=== PATIENT | male | born 1960 | race Hispanic/Latino ===

== ENCOUNTER 2018-12-28 09:41 | Observation (INO) | payer MEDICARE ==
[~2018-12-28] VITALS: Ht 180.3 cm; Wt 85.7 kg
--- OUTSIDE RECORDS SUMMARY | 2018-12-28 09:44 | XMS REPORT | Clinical Summary ---
Author Author [facility] Organization [facility] Address Unknown Phone Unavailable Care Team Providers Care Sports Physiologist Name Role Phone PCP Unavailable Allergies Comments Active Allergy Reactions Severity Noted Date Ruben Inhibitors Cough Medium 12/30/2008 Medications End Date Status Medication Sig Dispensed Refills Start Date Active blood glucose Use as 1 Kit 0 meterIndications: Type 2 directed.. 5 diabetes mellitus without complication Active blood glucose test 2 times 100 Each 11 stripsIndications: Type 2 weekly. 5 diabetes mellitus without complication Active fluticasone (FLONASE) 50 Use 1 [place] 16 g 0 mcg/actuation nasal in each 6 sprayIndications: Viral nostril URI with cough daily. Active ergocalciferol (VITAMIN Take 1 12 capsule 0 D2) 50,000 unit capsule by 7 capsuleIndications: mouth weekly Vitamin D deficiency For 3 months and then buy vitamin D3: 2000 units and take 1 tablet/day. Active levothyroxine (SYNTHROID) Take 1 tablet 90 tablet 3 50 mcg tabletIndications: by mouth 7 Unspecified daily For hypothyroidism thyroid (increased). Active amLODIPine (NORVASC) 10 Take 1 tablet 90 tablet 3 mg tabletIndications: by mouth 7 Essential hypertension daily For hypertension (increased dose). Active aspirin (ASPIRIN) 81 mg Chew and 0 chewable tablet swallow 81 mg by mouth daily. Active ciclesonide (ZETONNA) 37 Use 1 [place] 6.1 g 6 mcg/actuation nasal HFA in each 7 inhalerIndications: Nasal nostril congestion daily. Active LOSARTAN POTASSIUM Take 25 mg by 0 (LOSARTAN OR) mouth daily. Active montelukast (SINGULAIR) Take 10 mg by 0 10 mg tablet mouth at bedtime nightly. Active Problems Problem Noted Date Unspecified hypothyroidism 08/29/2016 Triple vessel disease of the heart 07/11/2016 Admission for antineoplastic chemotherapy 05/11/2015 Follow up 03/18/2015 Squamous cell carcinoma of base of tongue 02/03/2015 Overview: Tumor Board Discussion (01/28/15): Diagnosis: [id number] likely squamous cell carcinoma of right base of tongue Tx: None HPI: 54 yo M with right ear pain and sore throat for about a year. He has had progressive odynophagia, but no dysphagia. He also notes a firm mass on the right side of his base of tongue. He has had associated numbness of his right tongue. He has had weight loss of 10-12 pounds secondary to odynophagia. Denies fevers, chills, nasal congestion, rhinorrhea. He is a former smoker; he quit 2 months ago, previously smoked a pack a week for 5 years. He takes 2-3 drinks every other day, no recreational drug use. He has no family history of cancer. ROS: No otalgia, otorrhea, fevers, chills. PMH: HTN, HLD PSH: None All: Lisinopril Medications: Ergocalciferol, losartan, Lipitor SH: 2.5 PY history smoking, not currently; 2-3 drinks every other day FHx: Non-contributory Labs: Cr 1.0 Physical Exam: General: Well-developed, well-groomed, and well-nourished; no distress. Strong voice. Oral cavity/Oropharynx: Firm lesion on right base of tongue, 3.5x4.5 cm. Oral tongue, floor of mouth, and tonsillar fossae are soft to palpation. Tongue is fully mobile. Soft palate elevates symmetrically. Dentition is poor. Hypopharynx/Larynx: No lesions or masses involving the supraglottis, glottis, subglottis, posterior hypopharyngeal wall, or pyriform sinuses. True vocal cords are fully mobile. No pooling of secretions in the pyriform sinuses or post-cricoid region. Larynx elevates normally during phonation. Neck: Soft, mobile, nontender right level IIa node, 3x2cm. The thyroid is not enlarged and has no palpable nodules. Full range of motion. Normal laryngeal crepitus. Imaging: CT Neck (01/01/15): 1. The findings are worrisome for right tongue base squamous cell carcinoma. 2. Necrotic metastatic level 2A cervical lymphadenopathy on the right, suspicious level 2A on the left nonnecrotic lymph node. CT Chest (01/21/15): 1. No evidence of metastatic disease to the thorax. 2. Hepatic steatosis without findings to suggest cirrhosis. 3. Benign-appearing lesion in the left scapula. Addendum from [facility]: Concerning 8mm left level III node Pathology: Lymph node, right neck, superficial fine needle aspiration (01/13/15): Negative for malignancy Plan: ENT will perform DL and biopsy as path is needed to confirm diagnosis. Likely treatment will be primary chemoradiation. OMFS, Rad Onc, and Med Onc referrals placed. Neck mass 09/27/2014 Screen for colon cancer 09/27/2014 Screening for prostate cancer 09/27/2014 Other and unspecified alcohol dependence, unspecified drinking behavior 09/25/2014 Smoking 09/25/2014 Prediabetes 08/19/2012 HTN (hypertension) 07/18/2012 Elevated fasting glucose 12/30/2008 Hypertriglyceridemia 04/22/2008 BROWN (dyspnea on exertion) 03/11/2008 RUQ abdominal pain 03/11/2008 Squamous cell carcinoma Overview: base of tongue Mixed hyperlipidemia Overview: Hyperlipidemia Hypertension Ex-smoker Emphysema of lung Coronary atherosclerosis Constipation Hemorrhoid Vitamin D deficiency Renal insufficiency Elevated hemoglobin A1c Iron deficiency Elevated ferritin TSH elevation Encounters Care Team Description Date Type Specialty Hanna Murphy MD History of oropharyngeal cancer (Primary Dx); History of head and neck radiation 12/13/2018 Office Visit Ent-Otolaryngology 12/13/2018 Travel No Show 09/30/2018 Hospital Radiation Oncology Encounter Squamous cell carcinoma of base of tongue 09/11/2018 Ancillary Radiology Procedure 09/09/2018 Travel Jerzy Manuel MD Cancer of oropharynx (Primary Dx) 08/01/2018 Orders Only Radiation Oncology 07/05/2018 Travel Squamous cell carcinoma of base of tongue (Primary Dx) 02/12/2018 Hospital Radiation Oncology Encounter 02/12/2018 Hospital Radiation Oncology Encounter after 12/27/2017 Immunizations Name Administration Dates Next Due Influenza Vaccine 07/11/2016, 09/10/2015 (Deferred: Contraindication - Patient having throat swelling), 07/15/2015 (Deferred: Unavailable-Patient to return for vaccine later), 07/08/2014 Methylpredinsone Inj 09/10/2015 Pneumoccoccal 07/08/2014 Td Tetanus, diphtheria 12/31/2003 Toxoids Vaccine Family History Medical History Relation Name Comments Hypertension Brother Diabetes Father Heart Father CABG 4 vessel, age 62 Hypertension Mother Relation Name Status Comments Brother Alive x2 Brother Father Alive Maternal Grandfather Maternal Grandmother Mother Alive Paternal Grandfather Paternal Grandmother Social History Date Tobacco Use Types Packs/Day Years Used Former Smoker Cigarettes 2 Smokeless Tobacco: Former User Tobacco Cessation: Counseling Given: No Comments: quit since 3 to 4 months: stopped Jul 2014 Drinks/Week oz/Week Comments Alcohol Use 3 Cans of beer 1.5 every other day; stopped 2014 Yes Sex Assigned at Date Recorded Not on file Industry Job Start Date Occupation Not on file Not on file Not on file Travel End Travel History Travel Start No recent travel history available. Last Filed Vital Signs Reading Time Taken Comments Vital Sign 137/77 02/12/2018 2:16 PM CDT Blood Pressure 69 02/12/2018 2:16 PM CDT Pulse 36.8 C (98.3 F) 02/12/2018 2:16 PM CDT Temperature 20 02/12/2018 2:16 PM CDT Respiratory Rate 100% 02/12/2018 2:16 PM CDT Oxygen Saturation - - Inhaled Oxygen Concentration 83 kg (182 lb 14.4 oz) 02/12/2018 2:16 PM CDT Weight - - Height 26.24 08/29/2016 2:47 PM HOTEL ASSISTANT MANAGER Body Mass Index Plan of Treatment Health Maintenance Due Date Last Done Comments Colorectal Cancer Scrn 01/17/2017 01/18/2016 Annual (FIT/FOBT) Age 50 to 75 CORONARY ARTERY DISEASE 07/11/2017 07/11/2016, 01/12/2016, 08/02/2015, AGE 18 AND UP Additional history exists Procedures Comments Procedure Name Priority Date/Time Associated Diagnosis CT SOFT TISSUE NECK W Routine 09/11/2018 Squamous cell carcinoma CONTRAST 2:27 PM HOTEL ASSISTANT MANAGER of base of tongue UREA NITROGEN/CREATININE Routine 09/09/2018 Cancer of oropharynx 12:26 PM HOTEL ASSISTANT MANAGER UREA NITROGEN/CREATININE Routine 07/05/2018 Squamous cell carcinoma 9:29 AM HOTEL ASSISTANT MANAGER of base of tongue THYROID STIMULATING Routine 02/12/2018 Squamous cell carcinoma HORMONE (TSH) 3:31 PM CDT of base of tongue after 12/27/2017 Results * CT SOFT TISSUE NECK W CONTRAST (09/11/2018 2:27 PM HOTEL ASSISTANT MANAGER) Specimen Impressions Performed At IMPRESSION: SMS 1. No evidence of right base of tongue cancer. 2. No enlarged cervical lymphadenopathy. 3. Stable post treatment changes. Dictated By: Milan Garcia MD, 09/11/2018 4:40 PM I have reviewed the study and agree with the findings in this report. Signed By: Liz Don MD, 09/11/2018 5:04 PM Narrative Performed At Exam: Neck CT with contrast SMS History: H&N cancer s/p chemoradiation please assess. 56y.o.?M with a h/o [id number] SCC of the R BOT s/p chemo XRT, which he completed 06/25/15. He only received 2 rounds of cisplatin due to CHELLE. He has done well overall. Comparison studies: Multiple soft tissue neck CTs from 01/01/2015 through 05/16/2017. Technique: Axial scans were obtained through the neck with IV contrast. Coronal and sagittal reconstructions obtained from the axial data. IV Contrast: 100 cc of Omnipaque. Radiation Dose: Total DLP: 332 mGy*cm Estimated Effective Dose: DLP x 0.0059 mSv FINDINGS: Masses: Postradiation changes in the right tongue base without evidence of local recurrent tumor. Right tongue base atrophy and mild stranding of the submandibular region soft tissues from prior radiation. Lymph nodes: No radiographically significant adenopathy. Arteries: Patent carotid and vertebral arteries. Jugular veins: Patent.Co-dominant. Glands: Submandibular:Homogeneous, normal in size. Parotid: Homogeneous, normal in size. Thyroid:Homogeneous, normal in size. Orbits: No abnormalities.. Paranasal sinuses: Clear. Skull base and facial bones: No abnormalities. Temporal bones: No abnormalities. Cervical spine: C6-C7: Disc osteophyte complex formation asymmetric to the right, bilateral uncovertebral arthrosis. Severe right and mild left foraminal stenosis. Procedure Note Interface, Rad/Mammog In - 09/11/2018 5:09 PM HOTEL ASSISTANT MANAGER Exam: Neck CT with contrast History: H&N cancer s/p chemoradiation please assess. 56y.o.?M with a h/o [id number] SCC of the R BOT s/p chemo XRT, which he completed 06/25/15. He only received 2 rounds of cisplatin due to CHELLE. He has done well overall. Comparison studies: Multiple soft tissue neck CTs from 01/01/2015 through 05/16/2017. Technique: Axial scans were obtained through the neck with IV contrast. Coronal and sagittal reconstructions obtained from the axial data. IV Contrast: 100 cc of Omnipaque. Radiation Dose: Total DLP: 332 mGy*cm Estimated Effective Dose: DLP x 0.0059 mSv FINDINGS: Masses: Postradiation changes in the right tongue base without evidence of local recurrent tumor. Right tongue base atrophy and mild stranding of the submandibular region soft tissues from prior radiation. Lymph nodes: No radiographically significant adenopathy. Arteries: Patent carotid and vertebral arteries. Jugular veins: Patent.Co-dominant. Glands: Submandibular:Homogeneous, normal in size. Parotid: Homogeneous, normal in size. Thyroid:Homogeneous, normal in size. Orbits: No abnormalities.. Paranasal sinuses: Clear. Skull base and facial bones: No abnormalities. Temporal bones: No abnormalities. Cervical spine: C6-C7: Disc osteophyte complex formation asymmetric to the right, bilateral uncovertebral arthrosis. Severe right and mild left foraminal stenosis. IMPRESSION IMPRESSION: 1. No evidence of right base of tongue cancer. 2. No enlarged cervical lymphadenopathy. 3. Stable post treatment changes. Dictated By: Milan Garcia MD, 09/11/2018 4:40 PM I have reviewed the study and agree with the findings in this report. Signed By: Liz Don MD, 09/11/2018 5:04 PM Performing Organization Address City/State/Zipcode Phone Number SMS * UREA NITROGEN/CREA (09/09/2018 12:26 PM HOTEL ASSISTANT MANAGER) Only the most recent of 2 results within the time period is included. BUN 8 7 - 25 mg/dL [facility] Creatinine 1.00 0.7 - 1.3 mg/dL [facility] 1 GFR, Estimated >60 mL/min/1.73 m2 [facility] 1 eGFR If Africn >60 mL/min/1.73 m2 [facility] Am 1 Specimen Other (Specify in Comments) Performing Organization Address City/State/Zipcode Phone Number [facility] * TSH (02/12/2018 3:31 PM CDT) TSH 5.07 (H) 0.57 - 3.74 uIU/mL [facility] 1 Specimen Blood Performing Organization Address City/State/Zipcode Phone Number [facility] 1 after 12/27/2017 Insurance Type Payer Benefit Subscriber ID Effective Phone Address Plan / Dates Group [facility] xxxxxxxxx 2016-6 [address] MED[address]ARE MEDICARE [id number] [place] [address] HCHD PLAN HCHD PLAN xxxxxxx 2018-3 [address] [place] [address] Advance Directives Date Inactivated Comments Code Status Date Activated 06/02/2015 5:49 PM Full Code 06/01/2015 3:43 PM 05/12/2015 10:08 PM Full Code 05/11/2015 5:00 PM
--- OUTSIDE RECORDS SUMMARY | 2018-12-28 09:44 | XMS REPORT ---
[facility] Address Unknown Phone Unavailable Care Team Providers Care Cushion Former Name Role Phone Unavailable Unavailable Problems This patient has no known problems. Allergies, Adverse Reactions, Alerts This patient has no known allergies or adverse reactions. Medications This patient has no known medications. Encounters Start Date/Time End Date/Time Encounter Type Admission Type Attending [facility] Facility Care Department Encounter ID 2018-12-13 11:11:38 2018-12-13 11:11:38 Outpatient [facility] [id number] 2018-09-30 00:00:00 2018-09-30 00:00:00 Outpatient [facility] [id number] 2018-09-27 00:00:00 2018-09-27 00:00:00 Outpatient [facility] [id number] 2018-09-11 13:06:12 2018-09-11 13:06:12 Outpatient [facility] [id number] 2018-09-09 12:34:04 2018-09-09 12:34:04 Outpatient [facility] [id number] 2018-07-05 09:32:52 2018-07-05 09:32:52 Outpatient [facility] [id number] 2018-05-15 00:00:00 2018-05-15 00:00:00 Outpatient [facility] [id number] 2018-05-08 00:00:00 2018-05-08 00:00:00 Outpatient [facility] [id number] 2018-02-12 15:30:51 2018-02-12 15:30:51 Outpatient [facility] [id number] 2018-02-12 14:34:00 2018-02-12 14:34:00 Outpatient [facility] [id number] 2018-02-12 14:22:00 2018-02-12 14:22:00 Outpatient [facility] [id number] 2017-12-25 00:00:00 2017-12-25 00:00:00 Outpatient [facility] [id number] 2017-12-25 00:00:00 2017-12-25 00:00:00 Outpatient [facility] [id number] 2017-09-18 13:56:52 2017-09-18 13:56:52 Outpatient [facility] [id number] 2017-08-08 00:00:00 2017-08-08 00:00:00 Outpatient [facility] [id number] 2017-06-26 10:20:00 2017-06-26 10:20:00 Outpatient [facility] [id number] 2017-06-26 09:33:00 2017-06-26 09:33:00 Outpatient [facility] [id number] 2017-06-05 00:00:00 2017-06-05 00:00:00 Outpatient [facility] [id number] 2017-06-05 00:00:00 2017-06-05 00:00:00 Outpatient [facility] [id number] 2017-05-16 08:53:53 2017-05-16 08:53:53 Outpatient [facility] [id number] 2017-05-14 00:00:00 2017-05-14 00:00:00 Outpatient [facility] [id number] 2017-05-11 09:04:12 2017-05-11 09:04:12 Outpatient [facility] [id number] 2016-11-30 17:01:08 2016-11-30 17:01:08 Outpatient [facility] [id number] 2016-11-30 12:07:58 2016-11-30 12:07:58 Outpatient [facility] [id number] 2016-11-30 10:19:00 2016-11-30 10:19:00 Outpatient [facility] [id number]
[2018-12-28 10:10] LABS: BASOPHILS % 0.5 % (0.0-1.0); EOSINOPHILS % 0.4 % (0.0-6.0); HEMATOCRIT 37.4 % (38.2-49.6); HEMOGLOBIN 13.8 g/dL (14.0-18.0); LYMPHOCYTES # (AUTO) 1.3 (1.0-3.2); LYMPHOCYTES % 23.3 % (18.0-39.1); MEAN CORPUSCULAR HGB CONC 36.9 g/dL (31-35); MEAN CORPUSCULAR VOLUME 92.1 fL (81-99); MONOCYTES # (AUTO) 0.5 (0.2-0.8); MONOCYTES % 9.2 % (4.4-11.3); NEUTROPHILS # (AUTO) 3.7 (2.1-6.9); NEUTROPHILS % 66.1 % (38.7-80.0); PLATELET COUNT 254 x10e3/uL (140-360); RED BLOOD COUNT 4.06 x10e6/uL (4.3-5.7); RED CELL DISTRIBUTION WIDTH 12.4 % (11.7-14.4)
--- NOTE | 2018-12-28 10:16 | Diagnostic Imaging Report ---
Exam: Head CT without contrast History: Dizziness, right-sided numbness/weakness Comparison studies: None Technique: Axial images were obtained from the skull base to the vertex. Coronal and sagittal images reconstructed from the axial data. Dose modulation, iterative reconstruction, and/or weight based adjustment of the mA/kV was utilized to reduce the radiation dose to as low as reasonably achievable. Radiation dose: Total DLP: 921 mGy*cm. Estimated effective dose: DLP x 0.015 Intravenous contrast: None Findings: Scalp: No abnormalities. Bones: No fractures, blastic or lytic lesions. Brain sulci: Appropriate for age. Ventricles: Normal in size and configuration. No hydrocephalus. Extra-axial spaces: No masses, no fluid collection. Parenchyma: A few subtle hypodensities in the supratentorial white matter are nonspecific most compatible with chronic microvascular ischemic changes. No masses, acute hemorrhage, acute or chronic vascular insults. Sellar/suprasellar region: No abnormalities. Craniocervical junction: Patent foramen magnum. No Chiari one malformation. Incidental findings: Atherosclerotic calcifications in the carotid siphons. IMPRESSION: 1. No acute intracranial abnormalities. 2. Mild supratentorial chronic microvascular ischemic changes. Signed by: Dr. Roberto Bower M.D. on 12/28/2018 10:13 AM
[2018-12-28 10:25] LABS: INR 0.87; PROTHROMBIN TIME 12.3 seconds (11.9-14.5)
[2018-12-28 10:26] LABS: PARTIAL THROMBOPLASTIN TIME 25.3 seconds (23.8-35.5)
[2018-12-28 10:38] LABS: ALANINE AMINOTRANSFERASE 17 IU/L (0-55); ALBUMIN 4.8 g/dL (3.5-5.0); ALBUMIN/GLOBULIN RATIO 1.5 (0.8-2.0); ALKALINE PHOSPHATASE 64 IU/L (40-150); ANION GAP 19.5 mmol/L (8-16); BLOOD UREA NITROGEN 6 mg/dL (7-26); BUN/CREATININE RATIO 5 (6-25); CALCIUM 9.9 mg/dL (8.4-10.2); CARBON DIOXIDE 19 mmol/L (22-29); CHLORIDE 96 mmol/L (98-107); CREATINE KINASE 268 IU/L (30-200); CREATININE, SERUM 1.11 mg/dL (0.72-1.25); EST GLOMERULAR FILTRATION RATE > 60 ML/MIN (60-); GLUCOSE 150 mg/dL (74-118); POTASSIUM 3.5 mmol/L (3.5-5.1); SODIUM 131 mmol/L (136-145)
--- NOTE | 2018-12-28 10:56 | Diagnostic Imaging Report ---
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 LUNGS: Lungs are well inflated. Few scattered right upper lobe calcified granulomas. There is no evidence of pneumonia or pulmonary edema. PLEURA: No pleural effusion or pneumothorax. HEART AND MEDIASTINUM: The cardiomediastinal silhouette is unremarkable. BONES AND SOFT TISSUES: No acute osseous lesion. Soft tissues are unremarkable. UPPER ABDOMEN: No free air under the diaphragm. IMPRESSION: No acute thoracic abnormality. Signed by: Dr. Lisa Duque M.D. on 12/28/2018 10:52 AM
[2018-12-28] MEDS ORDERED: LOSARTAN POTASS25 MG (11:42)
[2018-12-28] MEDS ORDERED: SINGULAIR10 MG PO (11:46)
[2018-12-28] MEDS ORDERED: AMLODIPINE BESY10 MG PO (11:46)
[2018-12-28] MEDS ORDERED: LEVOTHYROXINE88 MCG PO (11:46)
[2018-12-28] MEDS ORDERED: LOSARTAN POTASS25 MG PO (11:46)
[2018-12-28] MEDS ORDERED: FLOMAX0.4 MG PO (11:46)
--- NOTE | 2018-12-28 12:01 | Diagnostic Imaging Report ---
History: Right-sided weakness, numbness Comparison studies:None Technique: Axial images were obtained from the skull base to the vertex. Coronal and sagittal MIP and 3-D volume rendered images were reconstructed from the axial data. Dose modulation, iterative reconstruction, and/or weight based adjustment of the mA/kV was utilized to reduce the radiation dose to as low as reasonably achievable. Intravenous contrast: 100 cc of Omnipaque 300. Findings: No aneurysm or arterial vascular malformation identified. Anterior circulation: Internal carotid arteries: Patent bilaterally with mild calcified atherosclerosis in the cavernous and right paraophthalmic segments which do not result in significant stenosis. Middle cerebral arteries: Patent, no proximal branch occlusion or stenosis. Anterior cerebral arteries: Patent, no proximal branch occlusion or stenosis. The left A1 segment is hypoplastic. Posterior circulation: Left vertebral artery: Patent, no abnormalities. Right vertebral artery: The partially imaged V3 segment of the right vertebral artery does not opacify and is occluded. The intradural V4 segment of the right vertebral artery opacifies beyond the dural insertion, possibly via retrograde flow. Calcified atherosclerosis in the proximal intradural V4 segment result in only mild stenosis. Basilar artery: Patent, no abnormalities. Posterior cerebral arteries: Patent, no proximal branch occlusion or stenosis. The left T1 segment is hypoplastic and the predominant supply to the left SILO OPERATOR is via a prominent posterior left indicating artery ( left SILO OPERATOR origin). Anatomical variants: Anterior cerebral arteries: Hypoplastic left A1 segment. Anterior communicating artery: Patent. Posterior communicating arteries: Patent bilaterally. Left SILO OPERATOR origin. IMPRESSION: 1. Right vertebral artery occlusion with nonopacified right V3 segment and reconstituted flow in the intradural V4 segment where there is also mild stenosis due to calcified atherosclerosis. 2. No other major branch occlusion or stenosis. 3. Nonstenotic calcified atherosclerosis in the carotid siphons. Neck CTA could further evaluate the right vertebral artery. If there remains persistent concern for acute ischemia, brain MRI could also be considered to further evaluate. Signed by: Dr. Roberto Bower M.D. on 12/28/2018 11:58 AM
--- NOTE | 2018-12-28 12:30 | NUR ---
PATIENT TO MRI AT THIS TIME
[2018-12-28] MEDS ORDERED: AZELASTINE137 MCG/0. INH (12:33)
[2018-12-28] MEDS ORDERED: GADOBENATE DIMEGLUMINE 1 ML IV ONE (12:40)
--- OUTSIDE RECORDS SUMMARY | 2018-12-28 13:02 | XMS REPORT | Clinical Summary ---
Author Author [facility] Organization [facility] Address Unknown Phone Unavailable Care Team Providers Care Bar Tacker Sewing Machine Name Role Phone PCP Unavailable Allergies Comments [...] complication Active fluticasone (FLONASE) 50 Use 1 [place] 16 g 0 mcg/actuation nasal in each [...] daily. Active ciclesonide (ZETONNA) 37 Use 1 [place] 6.1 g 6 mcg/actuation nasal HFA in [...] 02/03/2015 Overview: Tumor Board Discussion (01/28/15): Diagnosis: [id number] likely squamous cell carcinoma of right base [...] - - Height 26.24 08/29/2016 2:47 PM STRIPING MACHINE OPERATOR Body Mass Index Plan of Treatment Health Maintenance Due Date Last Done Comments Colorectal Cancer Scrn 01/17/2017 01/18/2016 Annual (FIT/FOBT) Age 50 to 75 CORONARY ARTERY DISEASE 07/11/2017 07/11/2016, 01/12/2016, 08/02/2015, AGE 18 AND UP Additional history exists Procedures Comments Procedure Name Priority Date/Time Associated Diagnosis CT SOFT TISSUE NECK W Routine 09/11/2018 Squamous cell carcinoma CONTRAST 2:27 PM STRIPING MACHINE OPERATOR of base of tongue UREA NITROGEN/CREATININE Routine 09/09/2018 Cancer of oropharynx 12:26 PM STRIPING MACHINE OPERATOR UREA NITROGEN/CREATININE Routine 07/05/2018 Squamous cell carcinoma 9:29 AM STRIPING MACHINE OPERATOR of base of tongue THYROID STIMULATING Routine 02/12/2018 Squamous cell carcinoma HORMONE (TSH) 3:31 PM CDT of base of tongue after 12/27/2017 Results * CT SOFT TISSUE NECK W CONTRAST (09/11/2018 2:27 PM STRIPING MACHINE OPERATOR) Specimen Impressions Performed At IMPRESSION: SMS 1. [...] chemoradiation please assess. 56y.o.?M with a h/o [id number] SCC of the R BOT s/p chemo [...] Interface, Rad/Mammog In - 09/11/2018 5:09 PM STRIPING MACHINE OPERATOR Exam: Neck CT with contrast History: H&N cancer s/p chemoradiation please assess. 56y.o.?M with a h/o [id number] SCC of the R BOT s/p chemo [...] SMS * UREA NITROGEN/CREA (09/09/2018 12:26 PM STRIPING MACHINE OPERATOR) Only the most recent of 2 results [...] Effective Phone Address Plan / Dates Group [facility] xxxxxxxxx 2016-2 [address] MED[address]ARE MEDICARE [id number] [place] [address] HCHD PLAN HCHD PLAN xxxxxxx 2018-3 [address] [place] [address] Advance Directives Date Inactivated Comments Code Status Date Activated 06/02/2015 5:49 PM Full Code 06/01/2015 3:43 PM 05/12/2015 10:08 PM Full Code 05/11/2015 5:00 PM
--- NOTE | 2018-12-28 13:30 | NUR ---
Pt arrived to unit, via stretch resp even and unlabored at this time, pt has telemetry in place , pt states no pain when asked, pt oriented to room and call light, bed in lowest position, bed rails up x2, call light in reach . will cont to monitor.
--- NOTE | 2018-12-28 14:16 | Diagnostic Imaging Report ---
History: Dizziness and right-sided weakness Comparison studies: Head CT and intracranial CTA 12/28/2018 Technique: Sagittal and axial T2, axial DWI, axial T2 FLAIR, axial T2*GRE, precontrast axial T1 FLAIR and postcontrast axial, coronal and sagittal T1 FS. Intravenous contrast: 17 cc MultiHance. Findings: Scalp: No abnormal signal. No masses. Bone marrow: Normal in signal intensity. Brain sulci: Appropriate for age. Ventricles: Normal in size . No hydrocephalus. Parenchyma: No mass, acute hemorrhage or acute ischemia. A few scattered T2 FLAIR hyperintense foci in the supratentorial white matter are nonspecific but most compatible with chronic microvascular ischemic changes. No enhancing abnormalities. Suprasellar region: No abnormalities. Craniocervical junction: Patent foramen magnum. No Chiari one malformation. Vessels: Abnormal flow signal within the basilar artery. Right vertebral artery not well visualized. Flow-voids of the remaining major intracranial arteries and dural venous sinuses are maintained. IMPRESSION: 1. No acute ischemia or hemorrhage. 2. Flow signal abnormality within the basilar artery. The basilar artery was shown to be patent on the preceding same day intracranial CTA (12/28/2018 at 11:29 AM). Cannot exclude interval basilar artery thromboembolism, especially in the context of right vertebral artery occlusion as seen on the preceding CTA. Follow-up neck and intracranial CTA or MRA could further evaluate. 3. Mild supratentorial chronic microvascular ischemic changes Findings discussed with Dr. Copeland of Neurology at 2:03 PM on 12/28/2018. Signed by: Dr. Roberto Bower M.D. on 12/28/2018 2:13 PM
[2018-12-28 17:13] VITALS: BP 149/78
[2018-12-28 18:27] VITALS: BP 149/78
[2018-12-28 18:46] LABS: CREATINE KINASE MB 2.3 ng/mL (0-5.0)
--- NOTE | 2018-12-28 19:00 | NUR ---
RECEIVED PATIENT IN BEDSIDE REPORT. PATIENT REPORTS NO PAIN OR WEAKNESS AT THIS TIME. NO S&S OF DISTRESS NOTED. BED LOCKED IN LOWEST POSITION, SIDE RAILS UPX2, CALL LIGHT IN REACH.
[2018-12-28 19:20] VITALS: BP 154/83
--- NOTE | 2018-12-28 19:44 | NUR ---
pt stable report given to oncoming nurse, for continued care.
[2018-12-28 19:51] VITALS: BP 154/83
[2018-12-28] MEDS ORDERED: SODIUM CHLORIDE 0.9% 50ML 0 ML ONE (20:36)
[2018-12-28] MEDS ORDERED: IOPAMIDOL 370 MG/ML 200 ML INFUS..BTL INJ ONE (20:36)
[2018-12-28] MEDS ORDERED: SODIUM CHLORIDE 0.9% 100 ML 100 ML ONE (20:36)
--- NOTE | 2018-12-28 20:41 | NUR ---
SPOKE WITH MD WEI, COVERING FOR MD CATHERINE, ORDERS TO RESUME HOME MEDS
[2018-12-28] MEDS ORDERED: AZELASTINE HCL 137 MCG NASAL SPRAY NS PRN (20:45)
[2018-12-28] MEDS: LOSARTAN POTASSIUM 25 MG TAB PO SCH (21:57)
[2018-12-28] MEDS: TAMSULOSIN HCL 0.4 MG CAP PO SCH (21:57)
[2018-12-28] MEDS: MONTELUKAST SODIUM 10 MG TAB PO SCH (21:57)
[2018-12-29] VITALS (8 sets, daily range): BP systolic 117–163; BP diastolic 78–99
[2018-12-29 02:55] LABS: BASOPHILS % 0.5 % (0.0-1.0); EOSINOPHILS % 0.2 % (0.0-6.0); HEMATOCRIT 37.1 % (38.2-49.6); HEMOGLOBIN 13.6 g/dL (14.0-18.0); LYMPHOCYTES # (AUTO) 0.9 (1.0-3.2); LYMPHOCYTES % 14.2 % (18.0-39.1); MEAN CORPUSCULAR HGB CONC 36.7 g/dL (31-35); MEAN CORPUSCULAR VOLUME 92.8 fL (81-99); MONOCYTES # (AUTO) 0.9 (0.2-0.8); MONOCYTES % 13.4 % (4.4-11.3); NEUTROPHILS # (AUTO) 4.6 (2.1-6.9); NEUTROPHILS % 71.4 % (38.7-80.0); PLATELET COUNT 250 x10e3/uL (140-360); RED CELL DISTRIBUTION WIDTH 12.6 % (11.7-14.4)
[2018-12-29 03:16] LABS: ALANINE AMINOTRANSFERASE 20 IU/L (0-55); ALBUMIN 4.7 g/dL (3.5-5.0); ALBUMIN/GLOBULIN RATIO 1.5 (0.8-2.0); ALKALINE PHOSPHATASE 65 IU/L (40-150); ANION GAP 16.7 mmol/L (8-16); BLOOD UREA NITROGEN 8 mg/dL (7-26); BUN/CREATININE RATIO 7 (6-25); CALCIUM 10.5 mg/dL (8.4-10.2); CARBON DIOXIDE 23 mmol/L (22-29); CHLORIDE 95 mmol/L (98-107); CREATININE, SERUM 1.08 mg/dL (0.72-1.25); EST GLOMERULAR FILTRATION RATE > 60 ML/MIN (60-); GLUCOSE 114 mg/dL (74-118); POTASSIUM 3.7 mmol/L (3.5-5.1); SODIUM 131 mmol/L (136-145)
[2018-12-29 03:29] LABS: CREATINE KINASE MB 1.8 ng/mL (0-5.0)
[2018-12-29] MEDS: LEVOTHYROXINE SODIUM 88 MCG TAB PO SCH (05:46)
[2018-12-29] MEDS ORDERED: LEVOTHYROXINE SODIUM 88 MCG TAB PO SCH (06:00)
[2018-12-29] MEDS: AMLODIPINE BESYLATE 10 MG TAB PO SCH (08:45)
[2018-12-29] MEDS ORDERED: LOSARTAN POTASSIUM 25 MG TAB PO SCH (09:00)
[2018-12-29] MEDS ORDERED: AMLODIPINE BESYLATE 10 MG TAB PO SCH (09:00)
--- NOTE | 2018-12-29 13:08 | Diagnostic Imaging Report ---
History: Right-sided weakness, history of cancer Comparison studies:Head CT and brain MRI on 12/28/2018 Technique: Axial images were obtained from the thoracic inlet. Coronal and sagittal images reconstructed from the axial data. Dose modulation, iterative reconstruction, and/or weight based adjustment of the mA/kV was utilized to reduce the radiation dose to as low as reasonably achievable. Intravenous contrast: 100 cc of Omnipaque 300. Findings: Aortic arch and major vessels: Patent in spite of a few scattered non-stenosing atherosclerotic calcifications. Common carotid arteries: Patent. No abnormalities. Right internal carotid artery: A non-stenosing calcified atherosclerotic plaque in the lateral wall of the bulb is associated with a non-stenosing, 8mm noncalcified plaque just distal to the bulb. Otherwise, the cervical segment is tortuous but patent. Left internal carotid artery: A non-stenosing, partially calcified plaque at the bulb is not associated with abnormalities throughout the rest of the cervical segment. Right vertebral artery: Barely visualized, irregular and partially occluded Specifically, origin is vaguely patent. The V1 segment is tortuous but grossly patent. The V2 and V3 segments are intermittently visualized. Only the distal segment of the intracranial (C4) segment is visualized just before the origin of the basilar artery Left vertebral artery: Tortuous but patent from its origin through its intradural segment. IMPRESSION: 1. The right vertebral artery is small and intermittently visualized throughout the cervical region from its origin through the intradural segment. A small, tortuous but patent left vertebral artery is present. 2. Non-stenosing calcified and noncalcified atherosclerotic plaques at both carotid bulbs as described. 3. Otherwise, no cervical abnormalities. Signed by: Dr. Woodrow Yen M.D. on 12/29/2018 1:04 PM
[2018-12-29] MEDS: ASPIRIN 81 MG ENTERIC COATED PO SCH (16:35)
[2018-12-29] MEDS: FAMOTIDINE 20 MG TAB PO SCH (16:35)
[2018-12-29] MEDS ORDERED: ENOXAPARIN SOD INJ 40 MG/0.4 ML SYR SC SCH (17:00)
[2018-12-29] MEDS ORDERED: SODIUM CHLORIDE 0.9% 100 ML 100 ML ONE (18:17)
[2018-12-29] MEDS ORDERED: IOPAMIDOL 370 MG/ML 200 ML INFUS..BTL INJ ONE (18:17)
--- NOTE | 2018-12-29 20:00 | NUR ---
INITIAL ASSESSMENT COMPLETE, VS STABLE, CALL LIGHT IN REACH, NO COMPLAINT OF PAIN, NO BM TODAY, NPO AT 2100, PT AWARE, AT BEDSIDE, NO OTHER NEEDS
--- NOTE | 2018-12-29 20:39 | Consultation ---
DATE OF CONSULTATION: 12/29/2018 Neurology Consult Note HISTORY OF PRESENT ILLNESS: Mr. Maldonado is a 58-year-old right-hand dominant man with past medical history significant for hypertension, thyroid disease, and prior history of cancer, currently in remission, admitted to [facility] on December 28, 2018 with symptoms suspicious for transient ischemic attack. On the morning of admission, the patient was standing in line in a local store when he experienced the sudden onset of dizziness, right hemiparesis, and numbness and tingling of the right arm and right leg. There was no visual field cut or disturbance, dysarthria, aphasia, or confusion. Mr. Maldonado does report poor balance and impairment of gait, which he attributes to the right-sided hemiparesis. Mr. Maldonado requested his to assist him to their motor vehicle in order to be taken to the emergency center at [facility] for further evaluation of his symptoms. By the time, Mr. Maldonado reached the emergency center at [facility], his symptoms have resolved. In total, Mr. Maldonado reports symptoms lasted for approximately 15 minutes. In the emergency center at [facility], the patient's neurological examination was documented as being nonfocal. While in the emergency center, a CTA of the brain without contrast was performed. This study did not reveal evidence of recent large territorial ischemia, hemorrhage, mass, or mass effect. Mr. Maldonado was then admitted to [facility] as an inpatient for further evaluation and treatment of his symptoms. Mr. Maldonado has not experienced similar symptoms previously. He does not take an antiplatelet or anticoagulant medication on a daily basis. REVIEW OF SYSTEMS: Nausea, vomiting, weakness of the right arm and leg, numbness and tingling of the right arm and leg, poor balance and impairment of gait, dizziness which was initially described as a lightheaded sensation evolving into a vertiginous sensation. Otherwise, a 12-point review of systems is negative. 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 PAST SURGICAL HISTORY: None. PAST HOSPITALIZATIONS: Chemotherapy/radiation. FAMILY MEDICAL HISTORY: Hypertension and diabetes mellitus. The patient's father is from coronary artery disease. One brother is alive and has diabetes mellitus and coronary artery disease. The second brother is alive and reportedly healthy. SOCIAL HISTORY: Mr. Maldonado is . He is on disability. The patient does report a prior history of tobacco use, but quit smoking cigarettes 3-4 years ago. The patient does drink red wine daily. He does not report current or prior recreational drug use. HOME MEDICATIONS: Reviewed. Please see list of home medications available in the electronic medical record. HOSPITAL MEDICATIONS: Reviewed. Please see the list of hospital medications available in the electronic medical record. ALLERGIES: LISINOPRIL. NO KNOWN FOOD ALLERGIES. NO KNOWN ALLERGIES TO LATEX. NO KNOWN ALLERGIES TO IODINE OR OTHER CONTRAST MATERIALS. PHYSICAL EXAMINATION: VITAL SIGNS: Height 71 inches, weight 189 pounds, BMI 26.4 kg/m2, blood pressure 117/79 mmHg, pulse 78 beats per minute, respiratory rate 18 breaths per minute, and oxygen saturation 95% on room air. GENERAL: The patient is awake and alert, does not appear distressed. HEENT: Normocephalic, atraumatic. Pupils are equal, round, and reactive to light. Moist mucous membranes. NECK: Supple. No appreciable thyromegaly. No appreciable carotid bruits. CARDIOVASCULAR: S1, S2, regular rate and rhythm. No murmurs, rubs, or gallops. RESPIRATORY: Clear to auscultation bilaterally. No wheezes, rhonchi, or rales. EXTREMITIES: The skin is warm and dry. No clubbing, cyanosis, or edema. The posterior tibial and dorsalis pedis pulses are 2+ and symmetric. SKIN: No rashes or lesions. NEUROLOGIC: Memory/Attention: The patient is awake and alert, oriented to person, place, time, and situation. Cranial Nerves: Cranial nerve I - not tested. Cranial nerve II, III, IV, and - pupils are equal and round, reactive briskly to light (from 4 mm to 2 mm). Extraocular movements intact. No nystagmus. Cranial nerve V - sensation to light touch and pinprick is intact in the bilateral V1 through V3 distributions. Strength in the temporalis and masseter muscles is within normal limits. Cranial nerve VII - the face is symmetric as are all facial movements. Strength is within normal limits. Cranial nerve VIII - hearing is intact to finger rub bilaterally. Cranial nerve IX, X - the soft palate elevates equally and symmetrically. Cranial nerve XI - normal strength of the bilateral sternocleidomastoid and trapezius muscles. Cranial nerve XII - the tongue protrudes midline and moves symmetrically from [id number]. Strength: Bulk is normal. Strength is 5/5 in the bilateral deltoids, biceps, triceps, wrist flexors and extensors, finger flexors and extensors, intrinsic hand muscles, hip flexors, knee flexors and extensors, ankle dorsiflexion and plantar flexion, and intrinsic foot muscles. Tone is normal. DTRs: Deep tendon reflexes are 1+ and symmetric at the triceps, biceps, brachioradialis, patellas, and Achilles. Plantar responses are flexor bilaterally. Sensation: Sensation is intact to light touch and pinprick in both arms and both legs. Cerebellar: [id number]-[id number] and heel-cotton movements are intact without dysmetria or other impairment. Gait: Deferred. Speech: Spontaneous speech is normal without appreciable dysarthria or aphasia. Repetition is intact. Involuntary movements: None. Pronator Drift: None. LABORATORY DATA: The most recent comprehensive metabolic panel is significant for hyponatremia with a sodium of 131, chloride of 95, anion gap of 16.7, and calcium of 10.5. Cardiac enzymes are significant for mildly elevated creatine kinase, but otherwise negative. The CBC with differential and platelets reveals a white blood cell count of 6.41 with 71.4% neutrophils, 14.2% lymphocytes, 13.4% monocytes, 0.2% eosinophils, and 0.5% basophils. The hemoglobin and hematocrit are 13.6 and 37.1, respectively. The platelet count is 250. A coagulation profile was within normal limits. DIAGNOSTIC STUDIES: 1. Electrocardiogram on 12/28/2018: Normal sinus rhythm at 77 beats per minute. 2. Chest x-ray on 12/28/2018: No acute thoracic abnormality. 3. CT of the brain without contrast on 12/28/2018: On my review, there is no evidence of recent or remote large territorial ischemia, hemorrhage, mass, or mass effect. Cerebral volumes appear appropriate for age. There are findings suggestive of mild chronic small-vessel ischemic disease. 4. CTA of the brain on 12/28/2018: a. Right vertebral artery occlusion with non-opacified right V3 segment and reconstituted flow in the intradural V4 segment where there is also mild stenosis due to calcified atherosclerosis. b. No other major branch occlusion or stenosis. c. Nonstenotic calcified atherosclerosis in the carotid siphons. 5. CTA could further evaluate the right vertebral artery. If there remains persistent concern for acute ischemia, brain MRI could also be considered to further evaluate. 6. Echocardiogram on 12/28/2018: Ejection fraction 55+%. Concentric left ventricular hypertrophy. 7. Bilateral carotid artery ultrasound with Doppler on 12/28/2018: There is atherosclerosis with possible hemodynamically significant stenosis at the external carotid artery. There is no atherosclerosis with hemodynamically significant stenosis in the left carotid artery system. Flow is antegrade in the bilateral vertebral arteries. 8. MRI of the brain without contrast on 12/28/2018: On my review, there is no evidence of recent or remote large territorial ischemia, hemorrhage, mass, or mass effect. Cerebral volumes are appropriate for age. There are scattered T2/FLAIR hyperintense foci in the supratentorial white matter compatible with mild chronic small vessel ischemic disease. ASSESSMENT AND PLAN: Mr. Maldonado is a 58-year-old right-hand dominant man with past medical history significant for hypertension and a prior history of cancer, currently admitted to [facility] on December 28, 2018 with symptoms suspicious for transient ischemic attack. At present, the patient's neurological examination is nonfocal. His laboratory data and other diagnostic studies are documented above. RECOMMENDATIONS: Are as follows: 1. Lipid panel: Hemoglobin A1c will be ordered with morning labs on 12/30/2018. 2. A CT will be ordered for further evaluation of the posterior circulation. 3. Mr. Maldonado will be prescribed aspirin 81 mg by mouth daily for stroke prophylaxis. 4. The patient is more than 24 hours status post transient ischemic attack. His blood pressure may be normalized. Treatment with the patient's home antihypertensive medications will be continued. His goal blood pressure is less than 140/90 mmHg prior to discharge. 5. The patient's goal total cholesterol is less than 200 with LDL of less than 70. Follow up the results of the lipid panel. 6. The patient's goal hemoglobin A1c is less than 7.0. Follow up the results of the hemoglobin A1c. Tight glycemic control is recommended while the patient is hospitalized. 7. Physical therapy and Speech Therapy consultations will be deferred as the patient has no current neurological deficits. 8. GI prophylaxis with Pepcid 20 mg by mouth with meals twice daily. 9. DVT prophylaxis with Lovenox 40 mg subcutaneously daily. 10. Defer treatment of the remaining medical comorbidities to the primary and other services following the patient. Thank you for this consultation. I will continue to follow the patient while he remains in the hospital. TIME SPENT: 70 minutes. Kallie Copeland MD CP/LEÓN /[id number]
[2018-12-29] MEDS: LOSARTAN POTASSIUM 25 MG TAB PO SCH (20:52)
[2018-12-29] MEDS: TAMSULOSIN HCL 0.4 MG CAP PO SCH (20:53)
[2018-12-29] MEDS: MONTELUKAST SODIUM 10 MG TAB PO SCH (20:53)
[2018-12-29] MEDS ORDERED: TAMSULOSIN HCL 0.4 MG CAP PO SCH (21:00)
--- NOTE | 2018-12-30 | NUR ---
pt awake easily for vs, vs stable, no distress noted, family at bedside, call light in reach
[2018-12-30 00:13] VITALS: BP 130/83
[2018-12-30 05:01] VITALS: BP 112/78
[2018-12-30] MEDS: LEVOTHYROXINE SODIUM 88 MCG TAB PO SCH (05:38)
--- NOTE | 2018-12-30 05:42 | NUR ---
pt awake, sitting on side of bed, at bedside, vs stable, call light in reach, no distess noted
[2018-12-30 06:18] LABS: CHOL/HDL RATIO 3.9 (3.9-4.7)
--- NOTE | 2018-12-30 07:00 | NUR ---
PT RESTING IN BED AA0X3. IS AT BEDSIDE PT DENIES PAIN . PT IS IN NO S.S OF DISTRESS PT HAS AN IV ACCESS TO HIS LEFT FA 20 SL PATENT AND DRY PT IS ON TELE RUNNING SR WILL CONTINUE TO MONITOR AT THIS TIME SIDE RAILSX2, BED WHEELS LOCKED ,CALL LIGHT IS WITHIN EASY REACH INSTRUCTED TO CALL FOR ASSISTANCE IF NEEDED
[2018-12-30] MEDS ORDERED: PRAVASTATIN SOD20 MG PO (07:20)
[2018-12-30] MEDS ORDERED: ASPIR 8181 MG PO (07:20)
[2018-12-30 07:51] VITALS: BP 135/59
--- NOTE | 2018-12-30 08:30 | NUR ---
SPOKE WITH MD VERMA WHO IS NOW AWARE OF CTA AND LAB WORK. MD ARAGON DISCHARGE AT THIS TIME
[2018-12-30 08:55] VITALS: BP 135/79
[2018-12-30] MEDS: ASPIRIN 81 MG ENTERIC COATED PO SCH (08:55)
[2018-12-30] MEDS: FAMOTIDINE 20 MG TAB PO SCH (08:55)
[2018-12-30] MEDS: AMLODIPINE BESYLATE 10 MG TAB PO SCH (08:55)
--- NOTE | 2018-12-30 09:10 | NUR ---
DC INSTRUCTIONS AND PRESCRIPTIONS GIVEN. PT VERBALIZED UNDERSTANDING IV DC PRESSURE DRESSING APPLIED AND TAPED PT IS NOW OFF UNIT TO HOME AT THIS TIME
--- NOTE | 2018-12-30 11:26 | Progress Note ---
DATE: 12/30/2018 SUBJECTIVE: A 58-year-old male, comes in with transient right-sided weakness. The patient has been seeing the neurologist. Symptoms have completely resolved. The patient is asymptomatic. No chest pain. No shortness of breath. No nausea, vomiting, or diarrhea. No constipation. No rectal bleeding. No hematochezia. No paresthesias. No hyperesthesias. No weakness seen and noted. OBJECTIVE: VITAL SIGNS: Today, temperature is 96.2, pulse of 76, respirations of 16, blood pressure is 112/78, and pulse oximeter of 94%. HEENT: Normocephalic, atraumatic. Pupils are reactive to light and accommodation. No facial droop present. Cranial nerves normal. CVS: S1, S2 normal. Regular rate and rhythm. ABDOMEN: Nontender and nondistended. EXTREMITIES: No clubbing, no cyanosis, and/or no edema. NEUROLOGICAL: No sensory or motor deficits noted. The patient's strength is normal in all extremities and also good pest control specialist and pest control specialist grasper, and good reflexes present. No sensory deficits noted. LABORATORY DATA: Laboratory values from yesterday, hemoglobin 13.6, hematocrit 37.1. Chemistries show sodium of 131, potassium 3.7, BUN of 8, creatinine of 1.08. Hemoglobin A1c was 5.6. CK was slightly elevated 265. Troponins were negative so far and trended to be negative. Total cholesterol 213, triglyceride 116, LDL 126, HDL of 54. Coags are all within normal limits. IMAGING STUDIES: Neck CTA shows right vertebral artery small, intermittently visualized throughout the cervical region. A small tortuous but patent left vertebral artery is present. Non stenosing, calcified and noncalcified atherosclerotic plaques at both carotid bulbs. Otherwise, no cervical abnormalities. Brain MRI shows flow segment abnormalities in the basilar artery, which showed to be patent at the preceding same day. Intracranial CTA cannot exclude interval basal artery thromboembolism, specially in the cortex. The right arterial occlusion is seen on the preceding CT. Followup CT or MRA, mild supratentorial chronic microvascular changes. Carotid Doppler was essentially normal. Head CTA shows right vertebral artery occlusion with non-pacified right V3 segment, and brain CT was essentially atherosclerotic calcification of the carotid siphons. Brain MRI shows questionable interval basilar artery thromboembolism involving the right vertebral artery right vertebral artery occlusion. ASSESSMENT: 1. Transient ischemic attack. We will keep the patient with aspirin and start the patient on statin. 2. Neurology is onboard. 3. At this time, the patient does not have any neurological deficits. We will continue with the statin, aspirin. The patient can be discharged home if okay with Neurology, blood pressures are trending okay. PLAN: To see the patient back in about 2-3 weeks. Recheck his CMP. Further recommendation per clinical course. The patient has been advised to follow a very healthy diet including low-carb, low-fat diet, and daily exercises, aspirin on daily basis, and to keep the blood pressure below 120/80. MD CELINA Caban/MODL /[id number]
--- NOTE | 2019-03-07 07:35 | Discharge Summary ---
HOSPITAL COURSE: The patient came into the hospital with TIA-like symptoms. The patient was seen by Neurology. The patient has a history of hypertension and also history of oral cancer. The patient also has a history of hyperlipidemia and hypertension, seen by Dr. Copeland. Medicines at home were continued. The patient's blood pressure was controlled. The patient's lipid panel was done, CT and neck MRI, and the patient was started on ASA. The patient's DVT study was negative. GI Pepcid was given and the patient's radiological studies felt to be negative. The patient is discharged home in stable condition. The patient's medications are reconciled on discharge. For further information, look into the chart. For medicines on discharge, look into the med reconciliation sheet. FINAL DIAGNOSES: Transient ischemic attack, hypertension, hyperlipidemia, and history of diabetes. MD CELINA Caban/JOSELINEL /[id number]
== END 2018-12-30 09:07 | disposition home or self-care (01) ==
LOC: ER 09:41 → ERHOLD 12:59 → MED/SURG 13:29
PROVIDERS: ADMIT Family Medicine; ATTEND Family Medicine
DX: G45.9 Transient cerebral ischemic attack, unspecified (principal); I10 Essential (primary) hypertension; E03.9 Hypothyroidism, unspecified; Z88.8 Allergy status to other drugs, medicaments and biological substances; N40.0 Benign prostatic hyperplasia without lower urinary tract symptoms
CPT/HCPCS: 36415 ×3; 70450; 70496; 70498; 70553; 71046; 80053 ×2; 80061; 82550 ×2; 82553 ×2; 83036; 84484 ×2; 85025 ×2; 85610; 85730; 93005; 93306; 93880; 99284; A9577; G0378 ×3; J1650; Q9967 ×2

== ENCOUNTER 2019-03-16 11:31 | Observation (INO) | payer MEDICARE ==
[~2019-03-16] VITALS: Ht 180.3 cm; Wt 85.7 kg
[~2019-03-16 11:31] MED LIST: AMLODIPINE BESY10 MG PO; ASPIR 8181 MG PO; AZELASTINE137 MCG/0. INH; FLOMAX0.4 MG PO; LEVOTHYROXINE88 MCG PO; LOSARTAN POTASS25 MG; LOSARTAN POTASS25 MG PO; PRAVASTATIN SOD20 MG PO; SINGULAIR10 MG PO
--- OUTSIDE RECORDS SUMMARY | 2019-03-16 11:34 | XMS REPORT | Clinical Summary ---
Author Author [facility] Organization [facility] Address Unknown Phone Unavailable Care Team Providers Care Medical Science Liaison Name Role Phone PCP Unavailable Allergies Comments [...] complication Active fluticasone (FLONASE) 50 Use 1 Stephenson 16 g 0 mcg/actuation nasal in each [...] daily. Active ciclesonide (ZETONNA) 37 Use 1 Stephenson 6.1 g 6 mcg/actuation nasal HFA in [...] 02/03/2015 Overview: Tumor Board Discussion (01/28/15): Diagnosis: [id number] likely squamous cell carcinoma of right base [...] and neck radiation 12/13/2018 Office Visit Ent-Otolaryngology No Show 09/30/2018 Hospital Radiation Oncology Encounter Squamous cell carcinoma of base of tongue 09/11/2018 Ancillary Radiology Procedure Jerzy Manuel MD Cancer of oropharynx (Primary Dx) 08/01/2018 Orders Only Radiation Oncology after 03/15/2018 Immunizations Name Administration Dates Next Due Influenza [...] travel history available. Last Filed Vital Signs Not on file Plan of Treatment Health Maintenance Due Date Last Done Comments Colorectal Cancer Scrn 01/17/2017 01/18/2016 Annual (FIT/FOBT) Age 50 to 75 CORONARY ARTERY DISEASE 07/11/2017 07/11/2016, 01/12/2016, 08/02/2015, AGE 18 AND UP Additional history exists Procedures Comments Procedure Name Priority Date/Time Associated Diagnosis CT SOFT TISSUE NECK W Routine 09/11/2018 Squamous cell carcinoma CONTRAST 2:27 PM SENIOR SOFTWARE QUALITY ANALYST of base of tongue UREA NITROGEN/CREATININE Routine 09/09/2018 Cancer of oropharynx 12:26 PM SENIOR SOFTWARE QUALITY ANALYST UREA NITROGEN/CREATININE Routine 07/05/2018 Squamous cell carcinoma 9:29 AM SENIOR SOFTWARE QUALITY ANALYST of base of tongue after 03/15/2018 Results * CT SOFT TISSUE NECK W CONTRAST (09/11/2018 2:27 PM SENIOR SOFTWARE QUALITY ANALYST) Specimen Impressions Performed At IMPRESSION: SMS 1. [...] chemoradiation please assess. 56y.o.?M with a h/o [id number] SCC of the R BOT s/p chemo [...] Interface, Rad/Mammog In - 09/11/2018 5:09 PM SENIOR SOFTWARE QUALITY ANALYST Exam: Neck CT with contrast History: H&N cancer s/p chemoradiation please assess. 56y.o.?M with a h/o [id number] SCC of the R BOT s/p chemo [...] SMS * UREA NITROGEN/CREA (09/09/2018 12:26 PM SENIOR SOFTWARE QUALITY ANALYST) Only the most recent of 2 results [...] Phone Number [facility] MAIN-STATION 1 after 03/15/2018 Insurance Type Payer Benefit Subscriber ID Effective Phone Address Plan / Dates Group [facility] xxxxxxxxx 2016-0 [address] MEDICARE [id number] [place] [address] [facility] [employer] xxxxxx 2019-3 [address] [place] [address] [facility] [employer] xxxxxxx 2019-3 [address] / [place] [address] Advance Directives Date Inactivated Comments Code Status Date Activated 06/02/2015 5:49 PM Full Code 06/01/2015 3:43 PM 05/12/2015 10:08 PM Full Code 05/11/2015 5:00 PM
--- NOTE | 2019-03-16 12:07 | Diagnostic Imaging Report ---
Examination: CT head without contrast Clinical Indication: Right side weakness. Technique: Transaxial noncontrast images from the skull base through the vertex were obtained. Sagittal and coronal reformatted images were done. Dose modulation, iterative reconstruction, and/or weight based adjustment of the mA/kV was utilized to reduce the radiation dose to as low as reasonably achievable. Comparison: Brain MRI dated 12/28/2018. Findings: Scalp: No abnormalities. Bones: Intact. No fractures. No blastic or lytic lesions. Brain sulci: Appropriate for patient's age. Ventricles: Normal in size and configuration. No hydrocephalus. . Extra-axial space: No abnormalities. Parenchyma: There are patchy areas of low-attenuation within subcortical and periventricular white matter, nonspecific, but could represent microvascular ischemic disease. No masses, hemorrhage, or acute or chronic cortical based vascular insults. Suprasellar region: No abnormalities. Craniocervical junction: The foramen magnum is patent. No Chiari one malformation. Incidental findings: Atherosclerotic calcification of the supraclinoid internal carotid and V4 segment of the right vertebral arteries. Impression: 1. No acute intracranial finding. 2. Unchanged chronic microvascular ischemic change when compared to prior brain MRI dated 12/28/2018. Signed by: Dr. Malinda Winkler M.D. on 03/16/2019 12:03 PM
[2019-03-16 12:34] LABS: BASOPHILS % 0.5 % (0.0-1.0); EOSINOPHILS % 0.4 % (0.0-6.0); HEMATOCRIT 38.6 % (38.2-49.6); LYMPHOCYTES % 26.7 % (18.0-39.1); MEAN CORPUSCULAR HGB CONC 36.3 g/dL (31-35); MONOCYTES # (AUTO) 0.6 (0.2-0.8); MONOCYTES % 7.7 % (4.4-11.3); NEUTROPHILS # (AUTO) 4.7 (2.1-6.9); NEUTROPHILS % 64.4 % (38.7-80.0); PLATELET COUNT 258 x10e3/uL (140-360); RED BLOOD COUNT 4.24 x10e6/uL (4.3-5.7); RED CELL DISTRIBUTION WIDTH 12.4 % (11.7-14.4)
[2019-03-16 12:55] LABS: INR 0.93
[2019-03-16 12:56] LABS: PARTIAL THROMBOPLASTIN TIME 23.4 seconds (23.8-35.5)
[2019-03-16 13:03] LABS: ALBUMIN 4.6 g/dL (3.5-5.0); ALBUMIN/GLOBULIN RATIO 1.5 (0.8-2.0); ANION GAP 18.6 mmol/L (8-16); CALCIUM 9.9 mg/dL (8.4-10.2); CREATININE, SERUM 1.24 mg/dL (0.72-1.25); POTASSIUM 3.6 mmol/L (3.5-5.1)
--- NOTE | 2019-03-16 13:08 | Diagnostic Imaging Report ---
EXAMINATION: CHEST SINGLE (PORTABLE) INDICATION: CVA. COMPARISON: Chest radiograph 12/28/2018. FINDINGS: TUBES and LINES: None. LUNGS: Lungs are well inflated. There is no evidence of pneumonia or pulmonary edema. PLEURA: No pleural effusion or pneumothorax. HEART AND MEDIASTINUM: The cardiomediastinal silhouette is unremarkable. BONES AND SOFT TISSUES: No acute osseous abnormality. UPPER ABDOMEN: No free air under the diaphragm. IMPRESSION: No acute radiographic abnormality. Signed by: Dr. Lili Magallanes MD on 03/16/2019 1:05 PM
[2019-03-16 13:24] LABS: CREATINE KINASE MB 1.6 ng/mL (0-5.0); THYROID STIMULATING HORMONE 1.386 uIU/mL (0.350-4.940)
[2019-03-16] MEDS ORDERED: ONDANSETRON HCL INJ 2MG/ML 2ML 2 MG/ML VIAL IV PRN (15:00)
[2019-03-16 15:02] LABS: BILIRUBIN,URINE NEGATIVE (NEGATIVE); CLARITY,URINE SL CLOUDY (CLEAR); COLOR,URINE YELLOW (YELLOW); KETONES,URINE TRACE (NEGATIVE); LEUKOCYTE ESTERASE ,URINE NEGATIVE (NEGATIVE); NITRITE,URINE NEGATIVE (NEGATIVE); PROTEIN,URINE DIPSTICK TRACE (NEGATIVE); URINE UROBILINOGEN 0.2 mg/dL (0.2 - 1)
[2019-03-16 15:09] LABS: AMPHETAMINES SCREEN,URINE NEGATIVE (NEGATIVE); BENZODIAZEPINES SCREEN,URINE NEGATIVE (NEGATIVE); PHENCYCLIDINE SCREEN,URINE NEGATIVE (NEGATIVE)
[2019-03-16] MEDS ORDERED: VALPROATE SOD 500 MG/5 ML ONE (15:25)
[2019-03-16] MEDS ORDERED: SODIUM CHLORIDE 0.9% 100 ML ONE (15:26)
--- OUTSIDE RECORDS SUMMARY | 2019-03-16 15:27 | XMS REPORT | Clinical Summary ---
Author Author [facility] Organization [facility] Address Unknown Phone Unavailable Care Team Providers Care Director Imaging Name Role Phone PCP Unavailable Allergies Comments [...] complication Active fluticasone (FLONASE) 50 Use 1 [place] 16 g 0 mcg/actuation nasal in each [...] daily. 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 [...] chemoradiation please assess. 56y.o.?M with a h/o [id number] SCC of the R BOT s/p chemo [...] Interface, Rad/Mammog In - 09/11/2018 5:09 PM [facility] [employer] Exam: Neck CT with contrast History: H&N cancer s/p chemoradiation please assess. 56y.o.?M with a h/o [id number] SCC of the R BOT s/p chemo [...] SMS * UREA NITROGEN/CREA (09/09/2018 12:26 PM [facility] [employer]) Only the most recent of 2 results [...] Effective Phone Address Plan / Dates Group [facility] xxxxxxxxx 2016-4 [address] [employer] MEDICARE [id number] [place] [address] [facility] [employer] xxxxxx 2019-3 [address] [place] [address] [facility] [employer] xxxxxxx 2019-3 [address] [place] [address] Advance Directives Date Inactivated Comments Code Status Date Activated 06/02/2015 5:49 PM Full Code 06/01/2015 3:43 PM 05/12/2015 10:08 PM Full Code 05/11/2015 5:00 PM
[2019-03-16] MEDS ORDERED: VALPROATE SOD INJ 500 MG in SODIUM CHLORIDE 0.9% 100 ML 100 ML IV SCH ×2 (15:30→18:00)
[2019-03-16 15:34] LABS: AMORPHOUS SEDIMENT,URINE MANY (FEW); BACTERIA,URINE MANY /HPF; EPITHELIAL CELLS,URINE MODERATE /LPF; WBC,URINE (MAN) 0-5 /HPF (0-5)
[2019-03-16] MEDS: VALPROATE SOD INJ 500 MG in SODIUM CHLORIDE 0.9% 100 ML 100 ML IV SCH ×2 (15:44→21:30)
[2019-03-16] MEDS: PROMETHAZINE 25MG/ NS 50ML (IV) IV SCH ×2 (15:44→18:00)
[2019-03-16] MEDS: METHYLPREDNISOLONE SOD SUCC 125 MG/2ML VIAL IV SCH ×2 (15:44→18:32)
--- NOTE | 2019-03-16 18:11 | NUR ---
RECEIVED PATIENT FROM ER. PATIENT A/O X3, EVEN RESPIRATIONS ON RA. BOWEL SOUNDS ACTIVE, SKIN INTACT, NO EDEMA. TELEMETRY #13 SR. RIGHT FA 18 GAUGE IV WITH NS @ 125 CC/HR. RIGHT SIDE WEAKNESS. PATIENT AMBULATES WITH STANDBY ASSIST. NO PAIN AT THIS TIME. ORIENTED PATIENT TO ROOM. CALL LIGHT IN REACH. BED LOW, WHEELS LOCKED, SIDE RAILS X2. FAMILY AT BEDSIDE. WILL CONTINUE TO MONITOR PATIENT.
[2019-03-16] MEDS: SODIUM CHLORIDE 0.9% 1000ML 1,000 ML IV SCH (18:32)
--- NOTE | 2019-03-16 19:16 | NUR ---
PT IS RESTING IN BED WITH FAMILY AT BEDSIDE. RESPIRATION IS EVEN AND UNLABORED, NO DISTRESS NOTED. BED IN THE LOWEST POSITION, LOCKED, AND CALL LIGHT WITHIN REACH. WILL CONTINUE TO MONITOR.
[2019-03-16 20:28] VITALS: BP 151/84
[2019-03-16 20:36] VITALS: BP 151/84
[2019-03-16 20:43] VITALS: BP 151/84
[2019-03-17] VITALS (9 sets, daily range): BP systolic 134–152; BP diastolic 75–81
[2019-03-17 01:15] LABS: CREATINE KINASE MB 0.9 ng/mL (0-5.0)
[2019-03-17] MEDS: SODIUM CHLORIDE 0.9% 1000ML 1,000 ML IV SCH ×2 (02:37→11:51)
[2019-03-17 06:28] LABS: HEMATOCRIT 38.6 % (38.2-49.6); HEMOGLOBIN 13.5 g/dL (14.0-18.0); LYMPHOCYTES # (AUTO) 0.6 (1.0-3.2); LYMPHOCYTES % 7.3 % (18.0-39.1); MEAN CORPUSCULAR HEMOGLOBIN 32.2 pg (28-32); MEAN CORPUSCULAR VOLUME 92.1 fL (81-99); MONOCYTES % 0.5 % (4.4-11.3); NEUTROPHILS # (AUTO) 7.3 (2.1-6.9); NEUTROPHILS % 91.6 % (38.7-80.0); PLATELET COUNT 257 x10e3/uL (140-360); RED BLOOD COUNT 4.19 x10e6/uL (4.3-5.7); RED CELL DISTRIBUTION WIDTH 12.5 % (11.7-14.4)
[2019-03-17 06:47] LABS: ALANINE AMINOTRANSFERASE 22 IU/L (0-55); ALBUMIN 4.3 g/dL (3.5-5.0); ALBUMIN/GLOBULIN RATIO 1.4 (0.8-2.0); ALKALINE PHOSPHATASE 71 IU/L (40-150); ANION GAP 15.7 mmol/L (8-16); BLOOD UREA NITROGEN 10 mg/dL (7-26); BUN/CREATININE RATIO 9 (6-25); CALCIUM 9.8 mg/dL (8.4-10.2); CARBON DIOXIDE 21 mmol/L (22-29); CHLORIDE 101 mmol/L (98-107); CREATINE KINASE 180 IU/L (30-200); EST GLOMERULAR FILTRATION RATE > 60 ML/MIN (60-); GLUCOSE 169 mg/dL (74-118); POTASSIUM 3.7 mmol/L (3.5-5.1); SODIUM 134 mmol/L (136-145)
--- NOTE | 2019-03-17 07:25 | History and Physical ---
The patient is in Med/[facility], comes in with weakness on the right side. HISTORY OF PRESENTING ILLNESS: Mr. Dustin Maldonado, who was recently admitted to the hospital for possible TIA. On the morning of admission, the patient started out with headache, right-sided occipital and the patient did not mind it much, started having his coffee, which made him nauseous. The patient after this experienced some paresthesias on the right side, which extended up from his toes all the way to the knees. The patient then from down started to have paresthesias, hyperesthesias on the right side and came on to the emergency room, was admitted for right-sided weakness and rule out TIA and CVA. PAST MEDICAL HISTORY: Includes: 1. Hypertension. 2. Hypothyroidism. 3. 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 4. Benign prostatic hypertrophy. FAMILY HISTORY: Hypertension and diabetes mellitus in father. SOCIAL HISTORY: , on disability secondary to the cancer. History of smoking in the past. Currently nonsmoker. REVIEW OF SYSTEMS: Positive for nausea. No vomiting. Weakness in the right arm and leg. Numbness and tingling in the right arm and leg. The patient with some gait disabilities on the right side, hyperesthesias in the right side too. MEDICATIONS: He takes at home are: 1. Amlodipine 10 mg daily. 2. Aspirin 81 mg daily. 3. nasal spray once a day. 4. Levothyroxine 88 mcg daily. 5. Losartan daily. 6. Montelukast 10 mg daily. 7. Pravastatin 20 mg daily. 8. Tamsulosin 0.4 mg daily. PHYSICAL EXAMINATION: VITAL SIGNS: Temperature is 96.9, pulse of 86, respirations of 16, blood pressure is 151/77, and pulse oximetry of 97%. HEENT: Normocephalic and atraumatic. Pupils reactive to light and accommodation. CVS: S1, S2 normal. Regular rate and rhythm. ABDOMEN: Nontender and nondistended. EXTREMITIES: No clubbing, no cyanosis, no edema. NEUROLOGIC: Cranial nerves normal. Motor functions normal. Sensory functions normal. No gross focal deficits noted. IMAGING STUDIES: The patient's chest x-ray had no cardiopulmonary disorders. CT of the brain shows no acute intracranial findings, unchanged chronic microvascular changes when compared to prior brain MRI dated 12/28/2018. MICROBIOLOGY: Urine culture is pending. LABORATORY DATA: White count is 7.3, hemoglobin of 14, hematocrit of 38.6. Chemistry; sodium 133, BUN of 9, creatinine of 1.24. Bilirubin was normal. TSH was normal. Toxicology, all negative. Urine is essentially negative. ASSESSMENT: A 59-year-old gentleman with: 1. Hyperesthesias and paresthesias on the right side. 2. Microvascular changes in the brain suggestive of chronic microvascular disease. 3. Symptoms suggestive of transient ischemic attack. 4. History of hypertension. 5. History of hyperlipidemia. 6. History of benign prostatic hyperplasia. 7. History of squamous cell carcinoma of the face. 8. Chronic kidney disease, we will monitor his BMP if he stays overnight. PLAN: MRI scheduled for the patient. The patient has undergone extensive workup in December of this year. We will continue to monitor the patient and possible discharge today. We will restart his home medication, further recommendation clinical course. MD CELINA Caban/MODL /[id number]
[2019-03-17] MEDS ORDERED: AMLODIPINE BESYLATE 10 MG TAB PO SCH (09:00)
[2019-03-17] MEDS ORDERED: ASPIRIN 81 MG ENTERIC COATED PO SCH (09:00)
[2019-03-17] MEDS ORDERED: ASPIRIN 81 MG CHEW TAB PO SCH (09:00)
[2019-03-17] MEDS ORDERED: ACETAMINOPHEN 325 MG TAB PO PRN (10:00)
[2019-03-17] MEDS ORDERED: ONDANSETRON HCL 4 MG ORAL DISINTEGRATING TAB PO PRN (12:30)
--- NOTE | 2019-03-17 16:53 | Diagnostic Imaging Report ---
EXAMINATION: MRI of the brain without contrast. HISTORY: Headache, numbness, weakness for the past 2 days, evaluate for TIA. COMPARISON: Head CT 03/16/2019 and brain MRI 12/28/2018 TECHNIQUE: Sagittal T2; axial DWI, T2, FLAIR, T1-IR, T2 gradient echo; coronal FLAIR. FINDINGS: Parenchyma: 1. Unchanged mild chronic microvascular ischemic changes throughout the supratentorial white matter. 2. No mass, hemorrhage, acute or chronic infarcts. Skull: Unremarkable. Vessels: Expected flow voids present in the major arteries and dural sinuses. Extra-axial spaces: No abnormal signal intensity or mass effect. Brain volume: Within normal limits for age. Ventricles: No hydrocephalus or displacement. Foramen magnum: Unremarkable. Sella: Unremarkable. Paranasal / mastoid sinuses: No significant inflammatory disease. IMPRESSION: 1. No acute infarcts. 2. Mild chronic microvascular ischemic changes, stable compared to brain MRI 12/28/2018 Signed by: Dr. Liz Don M.D. on 03/17/2019 4:49 PM
--- NOTE | 2019-03-17 18:45 | NUR ---
Received bedside report from day RN. The patient is sitting up on the bed, not in distress. Dr. Copeland is consulting with the patient and cleared the patient to go home. Will call Dr. Fernandes for DC order. Bed height low, call light within reach, side rails up x2, and wheels lock.
--- NOTE | 2019-03-17 19:15 | NUR ---
Report given to oncoming nurse of patient's status. at bedside. No s/s of acute distress noted.
--- NOTE | 2019-03-17 19:28 | NUR ---
Dr. Copeland cleared the patient to go home. Called Dr. Fernandes and received discharge order.
--- NOTE | 2019-03-17 20:22 | NUR ---
IV from left wrist removed and Tele box removed as well. Pt received discharge instruction to follow up with Dr. Fernandes and Dr. Copeland. RN walked with the patient to the lobby and to the vehicle with the spouse driving.
[2019-03-17] MEDS ORDERED: PRAVASTATIN 20 MG TAB PO SCH (21:00)
[2019-03-17] MEDS ORDERED: LOSARTAN POTASSIUM 25 MG TAB PO SCH (21:00)
[2019-03-17] MEDS ORDERED: MONTELUKAST SODIUM 10 MG TAB PO SCH (21:00)
[2019-03-17] MEDS ORDERED: TAMSULOSIN HCL 0.4 MG CAP PO SCH (21:00)
[2019-03-18] MEDS ORDERED: LEVOTHYROXINE SODIUM 88 MCG TAB PO SCH (06:00)
== END 2019-03-17 20:11 | disposition home or self-care (01) ==
LOC: ER 11:31 → ERHOLD 15:23 → MED/SURG 18:00
PROVIDERS: ADMIT Family Medicine; ATTEND Family Medicine
DX: I67.89 Other cerebrovascular disease (principal); E03.9 Hypothyroidism, unspecified; Z85.810 Personal history of malignant neoplasm of tongue; N40.0 Benign prostatic hyperplasia without lower urinary tract symptoms; I12.9 Hypertensive chronic kidney disease with stage 1 through stage 4 chronic kidney disease, or unspecified chronic kidney disease; N18.9 Chronic kidney disease, unspecified; R20.3 Hyperesthesia
CPT/HCPCS: 36415 ×2; 70450; 70551; 71045; 80053 ×2; 80307; 81001; 82550 ×2; 82553 ×2; 84443; 84484 ×2; 85025 ×2; 85610; 85730; 87086; 93005; 99284; G0378 ×2; J2550; J2930; J7030 ×2; J7050

== ENCOUNTER → 2022-03-28 | Day surgery (SDC) | payer MEDICARE ==
[~2022-03-28] MED LIST changes: +ATORVASTATIN CA20 MG PO; +BUTALB-ASPIRIN1 EACH PO; +FENTANYL CITRATE/PF 100MCG/2 ML INJ ONE; +MIDAZOLAM HCL 2 MG/2 ML VIAL ONE; +OR PHACO EYE KIT ONE; +PREOP PHACO EYE KIT ONE
[2022-03-28 14:20] VITALS: BP 140/92
== END | disposition home or self-care (01) ==
LOC: OR 09:49
PROVIDERS: ATTEND Ophthalmology
DX: H25.11 Age-related nuclear cataract, right eye (principal); I10 Essential (primary) hypertension; E78.2 Mixed hyperlipidemia; E03.9 Hypothyroidism, unspecified; E55.9 Vitamin D deficiency, unspecified; R73.03 Prediabetes; J30.2 Other seasonal allergic rhinitis; Z88.8 Allergy status to other drugs, medicaments and biological substances; Z79.82 Long term (current) use of aspirin; Z79.899 Other long term (current) drug therapy; Z68.25 Body mass index [BMI] 25.0-25.9, adult; Z86.16 Personal history of COVID-19; Z92.3 Personal history of irradiation; Z92.21 Personal history of antineoplastic chemotherapy; Z85.828 Personal history of other malignant neoplasm of skin; Z87.891 Personal history of nicotine dependence
CPT/HCPCS: 66982; J2250; J3010; V2632

== ENCOUNTER → 2022-04-11 | Day surgery (SDC) | payer MEDICARE ==
[~2022-04-11] MED LIST changes: +CHONDR SU A NA ONE; +[UNRECOGNIZED DRUG - OTHER] ONE
[2022-04-11 09:15] VITALS: BP 148/87
== END | disposition home or self-care (01) ==
LOC: OR 06:48
PROVIDERS: ATTEND Ophthalmology
DX: H25.12 Age-related nuclear cataract, left eye (principal); E03.9 Hypothyroidism, unspecified; Z86.73 Personal history of transient ischemic attack (TIA), and cerebral infarction without residual deficits; I10 Essential (primary) hypertension; N40.0 Benign prostatic hyperplasia without lower urinary tract symptoms; F17.210 Nicotine dependence, cigarettes, uncomplicated; Z79.82 Long term (current) use of aspirin; Z79.899 Other long term (current) drug therapy; Z92.3 Personal history of irradiation
CPT/HCPCS: 66984; J2250; J3010; V2632